=== PATIENT | female | born 1955 | race Two or more races ===

== ENCOUNTER 2024-03-18 18:13 | Emergency (ER) | payer OTHER ==
[2024-03-18 18:24] VITALS: RESP 18; TEMP 98; BMI 33.0
[2024-03-18] MEDS: SODIUM CHLORIDE 1,000 ML IV STA (20:03)
[2024-03-18 20:14] LABS: BASO % 1.1 % (0-2.0); EOS % 3.2 % (0-4.5); HEMATOCRIT 39.5 % (32.4-45.2); HEMOGLOBIN 13.3 GM/dL (10.7-15.3); LYMPH % 41.4 % (8-40); MCH 29.4 pg (25.7-33.7); MCHC 33.7 g/dl (32.0-36.0); MEAN PLT VOLUME 8.2 fl (7.5-11.1); MONO % 5.3 % (3.8-10.2); PLATELET COUNT 252 10^3/uL (134-434); RBC 4.54 M/mm3 (3.60-5.2); RDW 13.8 % (11.6-15.6)
[2024-03-18 20:27] VITALS: BP 151/92; PULSE 74
[2024-03-18 20:36] LABS: POTASSIUM 4.7 mmol/L (3.5-5.1)
[2024-03-18 20:38] LABS: ALBUMIN 3.5 g/dl (3.4-5.0); BLOOD UREA NITROGEN 13.9 mg/dL (7-18); CALCIUM 9.1 mg/dL (8.5-10.1)
[2024-03-18 20:42] LABS: CREATININE 0.8 mg/dL (0.55-1.3)
[2024-03-18 20:43] LABS: BILIRUBIN,TOTAL 0.4 mg/dL (0.2-1); TOT PROT 7.7 g/dl (6.4-8.2)
[2024-03-18] MEDS ORDERED: ONDANSETRON 4 MG/2 ML VIAL ONE (22:28)
[2024-03-18] MEDS ORDERED: FAMOTIDINE 20 MG/50 ML IVPB 20 MG/50 ML MG IVPB ONE (22:28)
[2024-03-18] MEDS: FAMOTIDINE 20 MG/50 ML IVPB 20 MG in PREMIX 50 IVPB ONE (22:35)
[2024-03-18] MEDS: ONDANSETRON 4 MG/2 ML VIAL IVPUSH ONE (22:35)
[2024-03-18] MEDS: FAMOTIDINE 20 MG TABLET PO ONE (23:09)
[2024-03-18 23:43] LABS: URINE APPEARANCE CLEAR; URINE BILIRUBIN NEGATIVE (NEGATIVE); URINE COLOR YELLOW; URINE GLUCOSE (UA) 3+ (NEGATIVE); URINE KETONE NEGATIVE (NEGATIVE); URINE LEUK ESTERASE NEGATIVE (NEGATIVE); URINE NITRITE NEGATIVE (NEGATIVE); URINE PROTEIN NEGATIVE (NEGATIVE); URINE UROBILINOGEN 0.2 mg/dL (0.2-1.0)
== END 2024-03-19 00:14 | disposition home or self-care (01) ==
LOC: JER 18:13
PROC: 3E033GC Introduction of Other Therapeutic Substance into Peripheral Vein, Percutaneous Approach (ICD-10-PCS; principal; 2024-03-18)
PROC: 3E033GC Introduction of Other Therapeutic Substance into Peripheral Vein, Percutaneous Approach (ICD-10-PCS; 2024-03-18)
DX: E11.65 Type 2 diabetes mellitus with hyperglycemia (principal); R35.0 Frequency of micturition; R30.0 Dysuria; R50.9 Fever, unspecified
CPT/HCPCS: 36415; 80053; 81003; 82962; 83036; 83690; 84484; 85025; 87077; 87086; 93005; 93010; 99284-25